=== PATIENT | male | born 1985 | race African-American/Black ===

== ENCOUNTER 2017-03-18 20:12 | Emergency (ER) | payer MEDICAID ==
[2017-03-18] MEDS ORDERED: CLINDAMYCIN 900 MG/D5W RTU 50 ML IV ONE (22:35)
[2017-03-18] MEDS ORDERED: DEXAMETHASONE SOD PHOS INJ 10 MG/1 ML VIAL IV ONE (22:35)
--- NOTE | 2017-03-18 22:36 | ER Document Report ---
ED General - General Chief Complaint: Abscess Stated Complaint: ABSCESS IN MOUTH Time Seen by Provider: 03/18/17 22:11 Notes: Patient is a 31-year-old male presents with complaints of possible dental abscess. Patient says that he has had issues with his teeth for a long time but last 24 hours she has developed pain and swelling over his right lower jaw. He denies any fevers. No difficulty breathing. No difficulty swallowing. No other complaints at this time. TRAVEL OUTSIDE OF THE [place] IN LAST 30 DAYS: No - Related Data Allergies/Adverse Reactions: No Known Allergies Allergy (Unverified 03/18/17 22:47) Past Medical History - Social History Smoking Status: Unknown if Ever Smoked Frequency of alcohol use: None Drug Abuse: None Family History: Reviewed & Not Pertinent Patient has suicidal ideation: No Patient has homicidal ideation: No Renal/ Medical History: Denies: Hx Peritoneal Dialysis Review of Systems - Review of Systems Notes: My Normal Review Basic REVIEW OF SYSTEMS: CONSTITUTIONAL : Denies fever, chills, or sweats. Denies recent illness. EENT: This welling of her right lower jaw. Dental pain. CARDIOVASCULAR: Denies chest pain. RESPIRATORY: Denies cough, cold, or chest congestion. Denies shortness of breath, difficulty breathing, or wheezing. GASTROINTESTINAL: Denies abdominal pain. Denies nausea, vomiting, or diarrhea. Denies constipation. Last BM: MUSCULOSKELETAL: Denies neck or back pain or joint pain or swelling. SKIN: Denies rash or skin lesions. ALL OTHER SYSTEMS REVIEWED AND NEGATIVE. Physical Exam - Vital signs Vitals: Temp Pulse Resp BP Pulse Ox 98.6 F 66 16 116/78 99 03/18/17 21:06 03/18/17 21:06 03/18/17 21:06 03/18/17 21:06 03/18/17 21:06 - Notes Notes: General Appearance: Well nourished, alert, cooperative, no acute distress, moderate obvious discomfort. Vitals: reviewed, See vital signs table. Head: Swelling over the right lower jaw. Swelling does not go inferior to the jaw. No findings consistent with José's angina. Eyes: PERRL, EOMI, Conjuctiva clear Mouth: No decreasd moisture Throat: No tonsillar inflammation, No airway obstruction, No lymphadenopathy Neck: Supple, no neck tenderness, no swelling in the neck.extremities, no edema. Skin: warm, dry, appropriate color, no rash Neuro: speech clear, oriented x 3, normal affect, responds appropriately to questions. Course - Re-evaluation Re-evalutation: 03/19/17 02:53 I feel the patient is a Decadron as well as IV dose of clindamycin. Currently he does have some swelling over the mandible however it is not below the mandible is not consistent with impending José's angina. I still informed the patient that there is always possibility that his swelling to get worse that he could transition underneath his jawline. I told him that that swelling does transition underneath his jawline that he must return to the ER immediately because it can lead to him having difficulty breathing and could potentially close off his airway. Patient is very understanding of this and agrees to keep an eye on the swelling to return if this occurs. I did attempt to aspirate the area of swelling to see if there is any purulence or abscess. There was not any purulence upon aspiration. Patient said he would call the oral surgeon first thing in the morning to get treatment. Dictation of this chart was performed using voice recognition software; therefore, there may be some unintended grammatical errors. - Vital Signs Vital signs: Temp Pulse Resp BP Pulse Ox 98.6 F 66 18 112/62 100 03/18/17 21:06 03/18/17 21:06 03/19/17 00:01 03/19/17 00:01 03/19/17 00:01 Discharge - Discharge Clinical Impression: Dental infection Condition: Good Disposition: HOME, SELF-CARE Instructions: Oral Narcotic Medication ([facility]) Additional Instructions: You have a dental infection. It is Extremely important that you take the antibiotics as well as follow-up closely with a dentist. If you do not have money to see a dentist, I have provided information to the [facility]. They have a free dental clinic associated with them. Please call them to see if they can get you in as soon as possible to help remove the teeth causing the infection. It is very important that you return to the ER immediately if you develop increasing facial swelling, any swelling going below your jaw, any difficulty breathing or swallowing, or if you feel that your symptoms are worsening. Prescriptions: Clindamycin HCl 300 mg PO ASDIR #56 capsule Forms: Return to Work Referrals: [facility] [ACTIVE STAFF] - 03/19/17
[2017-03-19] MEDS ORDERED: HYDROCODONE/ACETAMINOPHEN 5-325 MG 6 TAB/DSPK PO PRN (00:18)
[2017-03-19 00:36] VITALS: BP 112/62
== END 2017-03-19 00:15 | disposition home or self-care (01) ==
LOC: ER 20:12
DX: K04.7 Periapical abscess without sinus (principal)
CPT/HCPCS: 99282; 96375; 96365; J1100

== ENCOUNTER 2017-09-07 03:56 | Emergency (ER) | payer MEDICAID ==
[2017-09-07] MEDS ORDERED: NORMAL SALINE 1000 ML 1,000 ML IV ONE (04:00)
[2017-09-07 04:14] LABS: ABSOLUTE BASOPHILS # (AUTO) 0.1 10^3/uL (0.0-0.2); ABSOLUTE LYMPHOCYTES (AUTO) 1.8 10^3/uL (0.5-4.7); ABSOLUTE MONOCYTES (AUTO) 1.4 10^3/uL (0.1-1.4); ABSOLUTE NEUT (AUTO) 4.6 10^3/uL (1.7-8.2); BASOPHILS % (AUTO) 0.7 % (0-2); EOSINOPHILS % (AUTO) 0.2 % (0-6); HEMATOCRIT 45.7 % (37.9-51.0); HEMOGLOBIN 15.3 g/dL (13.5-17.0); LYMPHOCYTES % (AUTO) 22.8 % (13-45); MEAN CORPUSCULAR HEMOGLOBIN 28.2 pg (27.0-33.4); MEAN CORPUSCULAR HGB CONC 33.5 g/dL (32.0-36.0); MEAN CORPUSCULAR VOLUME 84 fl (80-97); MONOCYTES % (AUTO) 17.7 % (3-13); PLATELET COUNT 269 10^3/uL (150-450); RED BLOOD COUNT 5.43 10^6/uL (4.35-5.55); RED CELL DISTRIBUTION WIDTH 13.7 % (11.5-14.0); SEGMENTED NEUTROPHILS % (AUTO) 58.6 % (42-78); TOTAL CELLS COUNTED % (AUTO) 100 %; WHITE BLOOD COUNT 7.8 10^3/uL (4.0-10.5)
[2017-09-07] MEDS ORDERED: FENTANYL CITRATE INJ/PF 100 MCG/2 ML AMPUL IV ONE (04:20)
--- NOTE | 2017-09-07 04:23 | ER Document Report ---
ED General - General Chief Complaint: Flank Pain Stated Complaint: RIGHT FLANK PAIN Time Seen by Provider: 09/07/17 04:00 Notes: Patient is a 31-year-old male who presents with complaint of pain into his flank. His pain is right flank started tonight. He has not had pain similar to this before. No dysuria. No hematuria is noticed. No recent trauma or injuries. No history of kidney stones. No fevers. No vomiting. No other complaints at this time. TRAVEL OUTSIDE OF THE [place] IN LAST 30 DAYS: No - Related Data Allergies/Adverse Reactions: No Known Allergies Allergy (Verified 09/07/17 04:44) Past Medical History - Social History Smoking Status: Current Every Day Smoker Chew tobacco use (# tins/day): No Frequency of alcohol use: None Drug Abuse: None Family History: Reviewed & Not Pertinent Patient has suicidal ideation: No Patient has homicidal ideation: No Renal/ Medical History: Denies: Hx Peritoneal Dialysis Review of Systems - Review of Systems Notes: My Normal Review Basic REVIEW OF SYSTEMS: CONSTITUTIONAL : Denies fever, chills, or sweats. Denies recent illness. EENT: Denies eye, ear, throat, or mouth pain or symptoms. Denies nasal or sinus congestion. CARDIOVASCULAR: Denies chest pain. RESPIRATORY: Denies cough, cold, or chest congestion. Denies shortness of breath, difficulty breathing, or wheezing. GASTROINTESTINAL: Denies abdominal pain. Nausea GENITOURINARY: Right flank pain MUSCULOSKELETAL: Denies neck or back pain or joint pain or swelling. SKIN: Denies rash or skin lesions. NEUROLOGICAL: Denies altered mental status or loss of consciousness. Denies headache. Denies weakness or paralysis or loss of use of either side. Denies problems with gait or speech. Denies sensory or motor loss. ALL OTHER SYSTEMS REVIEWED AND NEGATIVE. Physical Exam - Vital signs Vitals: Temp Pulse Resp BP Pulse Ox 97.8 F 94 20 132/75 H 98 09/07/17 04:03 09/07/17 04:03 09/07/17 04:03 09/07/17 04:03 09/07/17 04:03 - Notes Notes: General Appearance: Well nourished, alert, cooperative, no acute distress, mild obvious discomfort. Vitals: reviewed, See vital signs table. Head: no swelling or tenderness to the head Eyes: PERRL, EOMI, Conjuctiva clear Mouth: No decreasd moisture Throat: No tonsillar inflammation, No airway obstruction, No lymphadenopathy Neck: Supple, no neck tenderness, No thyromegaly Lungs: No wheezing, No rales, No rhonci, No accessory muscle use, good air exchange bilaterally. Heart: Normal rate, Regular rythm, No murmur, no rub Abdomen: Normal BS, soft, No rigidity, No reproducible abdominal tenderness to palpation, No guarding, no rebound, no pain to palpation is reproducible to right flank. Neck: No tenderness to palpation of lower back. Extremities: strength 5/5 in all extremities, good pulses in all extremities, no swelling or tenderness in the extremities, no edema. Skin: warm, dry, appropriate color, no rash Neuro: speech clear, oriented x 3, normal affect, responds appropriately to questions. Course - Re-evaluation Re-evalutation: 09/07/17 06:23 Patient is now feeling much improved and does not have any pain at this time. I initially suspect he most likely had a kidney stone based on the fact that he had flank pain only that is not reproducible palpation that the pain was initially colicky. CT scan does not show evidence of stone. Urinalysis shows no evidence of infection. This possibility patient may have had a very small stone in the urinary past. This time is recent manic looks well. I feel he is safe to be discharged home. I informed him he must return to ER immediately if he has recurrent pains, vomiting, fevers, or feels unwell. We will have him return to the ER in 24 to 48 hrs. for reevaluation if he is having some recurring pain. Patient agrees with plan will be discharged home. Dictation of this chart was performed using voice recognition software; therefore, there may be some unintended grammatical errors. - Vital Signs Vital signs: Temp Pulse Resp BP Pulse Ox 97.8 F 94 20 132/75 H 98 09/07/17 04:03 09/07/17 04:03 09/07/17 04:03 09/07/17 04:03 09/07/17 04:03 - Laboratory Result Diagrams: 09/07/17 04:00 09/07/17 04:00 Laboratory results interpreted by me: 09/07/17 09/07/17 09/07/17 04:00 04:00 04:50 Monocytes % 17.7 H Glucose 112 H Urine Protein 30 H Urine Ketones TRACE H Urine Urobilinogen 2.0 H Discharge - Discharge Clinical Impression: Flank pain Condition: Good Disposition: HOME, SELF-CARE Additional Instructions: Your blood work and CT scan were negative for any concerning finding. The exact cause of your pain is not 100% clear. Just because your work up is negative today does not mean that every thing is 100% okay. Sometimes a disease process will take time before showing up on a work up. We therefore strongly encourage you to return to the ER for reevaluation in 24 to 48 hours if you are still having recurrent pain. please return to the ER immediately if you have fevers vomiting, worsening pain, or feel unwell. i have prescribed you Toradol. Do not take other NSAID medicaitons such as Aspirin, Motrin, Ibuprofen, Aleve, or Advil when taking this medication. It is okay to take Tylenol. Prescriptions: Ketorolac Tromethamine [Toradol 10 mg Tablet] 10 mg PO Q8HP PRN #10 tablet PRN Reason: Forms: Return to Work
[2017-09-07 04:30] LABS: ALANINE AMINOTRANSFERASE 40 U/L (21-72); ALBUMIN 4.2 g/dL (3.5-5.0); ALKALINE PHOSPHATASE 68 U/L (38-126); ANION GAP 9 (5-19); ASPARTATE AMINO TRANSFERASE 27 U/L (17-59); BILIRUBIN,DIRECT 0.3 mg/dL (0.0-0.4); BILIRUBIN,TOTAL 0.3 mg/dL (0.2-1.3); BLOOD UREA NITROGEN 11 mg/dL (7-20); CALCIUM 8.9 mg/dL (8.4-10.2); CARBON DIOXIDE 22 mmol/L (22-30); CHLORIDE 107 mmol/L (98-107); GLUCOSE 112 mg/dL (75-110); POTASSIUM 3.7 mmol/L (3.6-5.0); TOTAL PROTEIN 6.8 g/dL (6.3-8.2)
[2017-09-07 05:25] LABS: AMORPHOUS SEDIMENT,URINE 1+ /HPF; APPEARANCE,URINE TURBID; BILIRUBIN,URINE NEGATIVE (NEGATIVE); COLOR,URINE YELLOW; GLUCOSE, URINE NEGATIVE (NEGATIVE); KETONES,URINE TRACE mg/dL (NEGATIVE); LEUKOCYTE ESTERASE,URINE NEGATIVE (NEGATIVE); NITRITE,URINE NEGATIVE (NEGATIVE); PROTEIN,URINE 30 mg/dL (NEGATIVE); URINE SPECIFIC GRAVITY 1.035
--- NOTE | 2017-09-07 06:17 | RADIOLOGY REPORT (SQ) ---
EXAM DESCRIPTION: CT LTD RENAL STONE PROTOCOL ON CLINICAL HISTORY: 31 years Male, right flank pain COMPARISON: None. TECHNIQUE: No contrast. Coronal and sagittal reformat. This exam was performed according to our departmental dose-optimization program, which includes automated exposure control, adjustment of the mA and/or kV according to patient size and/or use of iterative reconstruction technique. FINDINGS: No acute findings. No bowel or renal obstruction. Normal appendix. No free fluid. 1.2 cm likely benign epidermal cyst of the right buttock. Likely benign 1.2 cm left renal cyst not definitively characterized. Prominent bilateral inguinal lymph nodes. Unenhanced inferior chest, intra-abdominal/intrapelvic structures, and musculoskeleton appear otherwise grossly intact. Impression: No acute findings.
[2017-09-07 06:39] VITALS: BP 148/75
== END 2017-09-07 06:39 | disposition home or self-care (01) ==
LOC: ER 03:56
DX: R10.9 Unspecified abdominal pain (principal); F17.200 Nicotine dependence, unspecified, uncomplicated
CPT/HCPCS: 99284; 96361; 96374; 36415; 85025; 80053; 81001; 76380; J3010; J7030

== ENCOUNTER 2017-12-02 18:16 | Emergency (ER) | payer MEDICAID ==
[2017-12-02 18:36] VITALS: BP 124/75
[2017-12-02] MEDS ORDERED: AMOXICILLIN TR/POT CLAVULANATE 500-125 MG TAB PO ONE (19:04)
[2017-12-02] MEDS ORDERED: IBUPROFEN 800 MG TABLET PO ONE (19:04)
[2017-12-02] MEDS ORDERED: OXYCODONE-ACETAMINOPHEN 5-325 MG TABLET PO ONE (19:04)
[2017-12-02] MEDS ORDERED: AMOXICILLIN TRIHYD 250 MG CAPSULE PO ONE (19:04)
--- NOTE | 2017-12-02 19:06 | ER Document Report ---
HPI - HPI Patient complains to provider of: Dental pain Onset: Other - 2 days Onset/Duration: Persistent Quality of pain: Achy Pain Level: 4 Context: Patient complains of dental pain for the past 2 days with facial swelling today. Patient denies any fever. Patient denies any difficulty breathing or swallowing. Associated Symptoms: Other - Dental infection. denies: Fever Exacerbated by: Denies Relieved by: Denies Similar symptoms previously: Yes Recently seen / treated by doctor: No - ROS ROS below otherwise negative: Yes Systems Reviewed and Negative: Yes All other systems reviewed and negative - CONSTITUTIONAL Constitutional: DENIES: Fever, Chills - EENT Notes: Dental infection - GASTROINTESTINAL Gastrointestinal: DENIES: Nausea, Patient vomiting - DERM Skin Color: Normal Skin Problems: None Past Medical History - General Information source: Patient - Social History Smoking Status: Current Every Day Smoker Smoking Education Provided: Yes Frequency of alcohol use: Occasional Drug Abuse: None Occupation: None Family History: Reviewed & Not Pertinent Patient has suicidal ideation: No Patient has homicidal ideation: No - Medical History Medical History: Negative Renal/ Medical History: Denies: Hx Peritoneal Dialysis Surgical Hx: Negative Vertical Provider Document - CONSTITUTIONAL Agree With Documented VS: Yes Exam Limitations: No Limitations General Appearance: WD/WN, No Apparent Distress - INFECTION CONTROL TRAVEL OUTSIDE OF THE [place] IN LAST 30 DAYS: No - HEENT HEENT: Atraumatic, Normocephalic Mouth Diagram: 1 - Dental decay, dental abscess, no sublingual or submental swelling, no trismus - NECK Neck: Lymphadenopathy-Right - Right submandibular - RESPIRATORY Respiratory: Breath Sounds Normal, No Respiratory Distress - CARDIOVASCULAR Cardiovascular: Regular Rate, Regular Rhythm - BACK Back: Normal Inspection - MUSCULOSKELETAL/EXTREMETIES Musculoskeletal/Extremeties: MAEW - NEURO Level of Consciousness: Awake, Alert, Appropriate - DERM Integumentary: Warm, Dry Course - Vital Signs Vital signs: Temp Pulse Resp BP Pulse Ox 97.6 F 77 18 124/75 99 12/02/17 18:34 12/02/17 18:34 12/02/17 18:34 12/02/17 18:34 12/02/17 18:34 Procedures - Incision and Drainage Right Type: Simple Incision Method: Incision made with needle Amount/type of drainage: mod amount of purulent drainage from oral abscess Mouth/Teeth picture: 1 - abscess Discharge - Discharge Clinical Impression: Infected dental caries, Oral abscess, Encounter for incision and drainage procedure Condition: Stable Disposition: HOME, SELF-CARE Instructions: Augmentin ([facility]), Dental Infection or Abscess ([facility]), Oral Narcotic Medication ([facility]) Additional Instructions: Return immediately for any new or worsening symptoms Followup with your primary care provider, call tomorrow to make a followup appointment Follow-up with the dentist for further evaluation, call tomorrow for an appointment Prescriptions: Amox Tr/Potassium Clavulanate [Augmentin 875-125 Tablet] 1 tab PO BID 10 Days tablet Naproxen [Naprosyn 250 Nmg Tablet] 1 tab PO BID #14 tablet Oxycodone HCl/Acetaminophen [Percocet 5-325 mg Tablet] 1 tab PO ASDIR PRN #15 tablet PRN Reason: Forms: Smoking Cessation Education Referrals: [facility] [Provider Group] - Follow up tomorrow
== END 2017-12-02 19:27 | disposition home or self-care (01) ==
LOC: ER 18:16
DX: K04.7 Periapical abscess without sinus (principal); K02.9 Dental caries, unspecified; K08.89 Other specified disorders of teeth and supporting structures; R59.0 Localized enlarged lymph nodes; F17.200 Nicotine dependence, unspecified, uncomplicated
CPT/HCPCS: 99282; 41800; J3490 ×3